=== PATIENT | male | born 1965 | race Caucasian/White ===

== ENCOUNTER 2017-10-15 12:28 | Emergency (ER) | payer MEDICAID ==
[~2017-10-15] VITALS: Ht 185.4 cm; Wt 143.2 kg
[~2017-10-15 12:28] MED LIST: CLON-528 PO; DOXE10CA2 PO; LISI-604 PO; MUPI22OI30 TOP
[2017-10-15] MEDS ORDERED: Permethrin Cream 60gm TP ONE (12:35)
[2017-10-15] MEDS ORDERED: Permethrin 1% 59ml topical rinse TP ONE (12:35)
[2017-10-15] MEDS ORDERED: LORazepam 1 MG tablet PO ONE (15:05)
[2017-10-15 15:15] VITALS: BP 144/77
== END 2017-10-15 15:43 | disposition home or self-care (01) ==
LOC: ER 12:28
DX: F41.9 Anxiety disorder, unspecified (principal); B88.8 Other specified infestations; I10 Essential (primary) hypertension; E78.00 Pure hypercholesterolemia, unspecified; I25.10 Atherosclerotic heart disease of native coronary artery without angina pectoris; F32.9 Major depressive disorder, single episode, unspecified; F12.90 Cannabis use, unspecified, uncomplicated; F15.90 Other stimulant use, unspecified, uncomplicated; Z88.5 Allergy status to narcotic agent; Z79.899 Other long term (current) drug therapy
CPT/HCPCS: 73660; 99284

== ENCOUNTER 2018-01-08 17:13 | Emergency (ER) | payer MEDICAID ==
[~2018-01-08] VITALS: Ht 185.4 cm; Wt 133.1 kg
[~2018-01-08 17:13] MED LIST changes: -CLON-528 PO; -DOXE10CA2 PO; -LISI-604 PO; +LURA60TA2 PO; -MUPI22OI30 TOP
[2018-01-08] MEDS ORDERED: LORazepam 1 MG tablet PO ONE (18:25)
[2018-01-09 09:12] VITALS: BP 145/90
== END 2018-01-09 09:13 | disposition home or self-care (01) ==
LOC: ER 17:13
DX: F41.9 Anxiety disorder, unspecified (principal); I25.10 Atherosclerotic heart disease of native coronary artery without angina pectoris; E78.00 Pure hypercholesterolemia, unspecified; I10 Essential (primary) hypertension; F32.9 Major depressive disorder, single episode, unspecified; F12.90 Cannabis use, unspecified, uncomplicated; F15.90 Other stimulant use, unspecified, uncomplicated; Z98.890 Other specified postprocedural states; Z88.5 Allergy status to narcotic agent
CPT/HCPCS: 99284

== ENCOUNTER 2018-01-16 17:44 | Emergency (ER) | payer MEDICAID ==
[~2018-01-16] VITALS: Ht 185.4 cm; Wt 109.0 kg
[2018-01-16 18:35] LABS: URINE AMPHETAMINE SCREEN NEGATIVE (Neg); URINE BARBITUATE SCREEN NEGATIVE (Neg); URINE BENZODIAZEPINES SCREEN NEGATIVE (Neg); URINE CANNABINOID SCREEN POSITIVE (Neg); URINE COCAINE SCREEN NEGATIVE (Neg); URINE METHADONE SCREEN NEGATIVE (Neg); URINE OPIATE SCREEN NEGATIVE (Neg); URINE PHENCYCLIDINE SCREEN NEGATIVE (Neg)
[2018-01-16 18:36] LABS: CLARITY,URINE CLEAR (Clear); COLOR,URINE YELLOW (Yellow); GLUCOSE, URINE NEGATIVE (Neg); KETONES,URINE TRACE mg/dl (Neg); LEUKOCYTE ESTERASE ,URINE NEGATIVE (Neg); NITRITES, URINE NEGATIVE (Neg); OCCULT BLOOD,URINE NEGATIVE (Neg); PH,URINE 5.5 (4.8-8.0); PROTEIN,URINE NEGATIVE (Neg); UROBILINOGEN,URINE 0.2 E.U/dL (0.2-1.0)
[2018-01-16 18:42] LABS: UA COLLECTION TYPE CLN CATCH MIDSTREAM
[2018-01-16] MEDS ORDERED: LORazepam 1 MG tablet PO ONE (19:20)
[2018-01-16] MEDS ORDERED: GABA-530 PO (19:35)
[2018-01-16] MEDS ORDERED: BUSP30TA3 PO (19:35)
[2018-01-16] MEDS ORDERED: LISI10TA4 PO (19:35)
[2018-01-16] MEDS ORDERED: LORA1TAB PO (19:35)
[2018-01-16] MEDS ORDERED: SERT100T10 PO (19:35)
[2018-01-16 20:02] LABS: BASOPHILS # (AUTO) 0.1 X10'3 (0-0.2); BASOPHILS % (AUTO) 1.2 % (0-1); EOSINOPHILS # (AUTO) 0.4 X10'3 (0-0.9); EOSINOPHILS % (AUTO) 4.2 % (0-6); HEMATOCRIT 47.1 % (42.0-52.0); HEMOGLOBIN 15.8 g/dl (14.0-17.9); LYMPHOCYTES # (AUTO) 2.9 X10'3 (1.1-4.8); MEAN CORPUSCULAR HEMOGLOBIN 30.7 PG (27.0-31.0); MEAN CORPUSCULAR HGB CONC 33.5 % (33.0-36.5); MEAN CORPUSCULAR VOLUME 91.7 FL (78-98); MEAN PLATELET VOLUME 6.8 FL (7.4-10.4); MONOCYTES # (AUTO) 0.4 X10'3 (0-0.9); MONOCYTES % (AUTO) 4.6 % (2-12); NEUTROPHILS # (AUTO) 5.7 X10'3 (1.8-7.7); PLATELET COUNT 347 X10'3 (140-440); RED BLOOD COUNT 5.13 X10'6 (4.70-6.10); RED CELL DISTRIBUTION WIDTH 12.9 % (11.5-14.5); WHITE BLOOD COUNT 9.5 X10'3 (4.5-11.0)
[2018-01-16 20:19] LABS: ALANINE AMINOTRANSFERASE 30 U/L (12-78); ALBUMIN 3.4 G/DL (3.4-5.0); ALBUMIN/GLOBULIN RATIO 0.9 (1.1-1.5); ALKALINE PHOSPHATASE 138 IU/L (46-116); ANION GAP 8 (8-16); ASPARTATE AMINO TRANSFERASE 19 U/L (10-37); BILIRUBIN,TOTAL 0.3 MG/DL (0.1-1.0); BLOOD UREA NITROGEN 14 MG/DL (7-18); BUN/CREATININE RATIO 13.6 (5.4-32.0); CALCIUM 10.7 MG/DL (8.5-10.1); CHLORIDE 106 MMOL/L (99-107); CREATININE 1.03 MG/DL (0.60-1.10); GLUCOSE 121 MG/DL (70-104); SODIUM 141 MMOL/L (135-145); TOTAL CARBON DIOXIDE 26.7 MMOL/L (24-32); TOTAL PROTEIN 7.3 G/DL (6.4-8.2); eGFR 75 ML/MIN
[2018-01-16 20:27] LABS: ETHANOL < 0.010 GM/DL (0.0-0.010)
[2018-01-16] MEDS: lisinopril 10 MG tablet PO SCH (21:27)
[2018-01-16] MEDS: busPIRone 15mg tablet PO SCH (21:28)
[2018-01-16] MEDS: gabapentin 100mg capsule PO SCH (21:28)
[2018-01-17] MEDS ORDERED: LORazepam 0.5 MG tablet PO PRN (02:35)
[2018-01-17] MEDS ORDERED: haloperidol 1mg tablet PO PRN (02:35)
[2018-01-17] MEDS: sertraline 50mg tablet PO SCH (08:10)
[2018-01-17] MEDS: gabapentin 100mg capsule PO SCH ×3 (08:10→21:00)
[2018-01-17] MEDS: busPIRone 15mg tablet PO SCH ×3 (08:10→21:01)
[2018-01-17] MEDS: LORazepam 1 MG tablet PO PRN ×2 (11:54→22:52)
[2018-01-17] MEDS ORDERED: lamoTRIgine 25mg tablet PO SCH (21:00)
[2018-01-17] MEDS: lisinopril 10 MG tablet PO SCH (21:01)
[2018-01-18] MEDS: sertraline 50mg tablet PO SCH (08:16)
[2018-01-18] MEDS: busPIRone 15mg tablet PO SCH (08:16)
[2018-01-18] MEDS: gabapentin 100mg capsule PO SCH (08:16)
[2018-01-18] MEDS: LORazepam 1 MG tablet PO PRN (08:20)
[2018-01-18 11:43] VITALS: BP 108/62
== END 2018-01-18 10:30 ==
LOC: ER 17:44
DX: R45.851 Suicidal ideations (principal); F32.9 Major depressive disorder, single episode, unspecified; I25.10 Atherosclerotic heart disease of native coronary artery without angina pectoris; E78.00 Pure hypercholesterolemia, unspecified; I10 Essential (primary) hypertension; F41.9 Anxiety disorder, unspecified; F12.90 Cannabis use, unspecified, uncomplicated; F15.90 Other stimulant use, unspecified, uncomplicated; Z98.890 Other specified postprocedural states; Z88.5 Allergy status to narcotic agent; Z79.899 Other long term (current) drug therapy
CPT/HCPCS: 36415; 80053; 80305; 80320; 81003; 84443; 85025; 99285

== ENCOUNTER 2018-02-09 17:17 | Emergency (ER) | payer MEDICAID ==
[~2018-02-09] VITALS: Ht 185.4 cm; Wt 127.0 kg
[~2018-02-09 17:17] MED LIST changes: +BUSP30TA3 PO; +GABA-530 PO; +LISI10TA4 PO; +LORA1TAB PO; -LURA60TA2 PO; +SERT100T10 PO
[2018-02-09] MEDS ORDERED: MIRT45TA83 PO (17:32)
[2018-02-09 18:13] LABS: BASOPHILS # (AUTO) 0.1 X10'3 (0-0.2); BASOPHILS % (AUTO) 1.6 % (0-1); EOSINOPHILS # (AUTO) 0.2 X10'3 (0-0.9); EOSINOPHILS % (AUTO) 2.4 % (0-6); HEMATOCRIT 49.7 % (42.0-52.0); HEMOGLOBIN 16.8 g/dl (14.0-17.9); LYMPHOCYTES # (AUTO) 2.5 X10'3 (1.1-4.8); LYMPHOCYTES % (AUTO) 29.9 % (21-51); MEAN CORPUSCULAR HEMOGLOBIN 30.6 PG (27.0-31.0); MEAN CORPUSCULAR HGB CONC 33.7 % (33.0-36.5); MEAN CORPUSCULAR VOLUME 90.7 FL (78-98); MEAN PLATELET VOLUME 6.8 FL (7.4-10.4); MONOCYTES # (AUTO) 0.5 X10'3 (0-0.9); MONOCYTES % (AUTO) 5.6 % (2-12); NEUTROPHILS % (AUTO) 60.5 % (42-75); PLATELET COUNT 355 X10'3 (140-440); RED BLOOD COUNT 5.48 X10'6 (4.70-6.10); WHITE BLOOD COUNT 8.3 X10'3 (4.5-11.0)
[2018-02-09 18:27] LABS: ALANINE AMINOTRANSFERASE 36 U/L (12-78); ALBUMIN 3.9 G/DL (3.4-5.0); ALBUMIN/GLOBULIN RATIO 0.9 (1.1-1.5); ALKALINE PHOSPHATASE 126 IU/L (46-116); ANION GAP 11 (8-16); ASPARTATE AMINO TRANSFERASE 19 U/L (10-37); BILIRUBIN,TOTAL 0.5 MG/DL (0.1-1.0); BLOOD UREA NITROGEN 14 MG/DL (7-18); BUN/CREATININE RATIO 14.4 (5.4-32.0); CALCIUM 11.5 MG/DL (8.5-10.1); CHLORIDE 105 MMOL/L (99-107); CREATININE 0.97 MG/DL (0.60-1.10); GLUCOSE 103 MG/DL (70-104); POTASSIUM 4.2 MMOL/L (3.5-5.1); SODIUM 139 MMOL/L (135-145); TOTAL CARBON DIOXIDE 23.5 MMOL/L (24-32); TOTAL PROTEIN 8.2 G/DL (6.4-8.2); eGFR 81 ML/MIN
[2018-02-09 18:36] LABS: ETHANOL < 0.010 GM/DL (0.0-0.010)
[2018-02-09 18:41] LABS: URINE AMPHETAMINE SCREEN NEGATIVE (Neg); URINE BARBITUATE SCREEN NEGATIVE (Neg); URINE BENZODIAZEPINES SCREEN NEGATIVE (Neg); URINE CANNABINOID SCREEN POSITIVE (Neg); URINE COCAINE SCREEN NEGATIVE (Neg); URINE METHADONE SCREEN NEGATIVE (Neg); URINE OPIATE SCREEN NEGATIVE (Neg); URINE PHENCYCLIDINE SCREEN NEGATIVE (Neg)
[2018-02-09] MEDS ORDERED: quetiapine 100mg tablet PO SCH ×2 (18:55→21:00)
[2018-02-09] MEDS ORDERED: lisinopril 10 MG tablet PO SCH (21:00)
[2018-02-09] MEDS ORDERED: clonazePAM 1mg tablet PO SCH (21:00)
[2018-02-09] MEDS ORDERED: mirtazapine 15mg tablet PO SCH (23:10)
[2018-02-10] MEDS ORDERED: Melatonin 3mg tablet PO SCH ×3 (01:00→21:00)
[2018-02-10 05:30] VITALS: BP 108/55
[2018-02-10] MEDS ORDERED: quetiapine 100mg tablet PO SCH (21:00)
== END 2018-02-10 16:35 | disposition home or self-care (01) ==
LOC: ER 17:17
DX: R45.851 Suicidal ideations (principal); F32.9 Major depressive disorder, single episode, unspecified; I25.10 Atherosclerotic heart disease of native coronary artery without angina pectoris; E78.00 Pure hypercholesterolemia, unspecified; I10 Essential (primary) hypertension; F41.9 Anxiety disorder, unspecified; F12.90 Cannabis use, unspecified, uncomplicated; F15.90 Other stimulant use, unspecified, uncomplicated; Z88.5 Allergy status to narcotic agent; Z79.899 Other long term (current) drug therapy
CPT/HCPCS: 36415; 80053; 80305; 80320; 85025; 99285